=== PATIENT | male | born 1940 | race Caucasian/White ===

== ENCOUNTER → 2019-05-11 | Outpatient (CLI) | payer OTHER, MEDICARE ==
[~2019-05-11] MED LIST: AMLODIPINE BESY10 MG PO; CRANBERRY500 M3 PO; DOXYCYCLINE 10100 MG PO; ELIQUIS5 MG PO; LIPITOR80 MG PO; LOSARTAN POTAS100 MG PO; MIRALAX17 G1 PO; PROBIOTIC1 EAC1 PO; ZETIA10 MG PO
--- NOTE | 2019-05-13 17:17 | SLE ---
[facility] [place] [address] POLYSOMNOGRAPHY STUDY Name: LORRAINE DELGADO Room #: REG [facility]#: [id number] Admission: 05/11/19 Attend Phys: Serafin Brock MD Discharge: Date of : 44 Report #: [id number] THIS REPORT FOR: //name// CC: Serafin Morrison MD DATE OF SERVICE: 05/11/2019 SLEEP STUDY REPORT ATTENDING PHYSICIAN: Dr. Kyle Morrison. FINDINGS: The patient is a 79-year-old who weighs 255 pounds with a BMI of 32.7. The patient has history of severe sleep apnea, for which he has been on CPAP. A recent compliance data revealed adequate efficacy of the CPAP pressure. The patient was on auto CPAP. However, nocturnal oximetry study revealed low oxygen saturations. As a result, he was referred back to the Sleep Lab to assess the need for any increase in CPAP pressure versus supplemental oxygen. During the night study, the patient spent 477 minutes in bed and slept for 342 minutes with a sleep efficiency of 71%. Sleep latency was 23 minutes with a REM latency of 97.5 minutes. Sleep architecture showed increased stage 1 and stage 2 sleep, absent slow wave and normal REM sleep. EKG monitoring revealed an average heart rate of 49 beats per minute with a maximum of 75 beats per minute. Occasional PVCs observed. No sustained arrhythmias observed. PLMS were seen at an index of 24 per hour with only 1 per hour caused EEG arousals. The patient was started on CPAP at 5 cm of water and titrated up to 9 cm water. At the final pressure, the patient slept to 260 minutes including 64.9 minutes of REM sleep. The patient had supine sleep as well. The patient's AHI was reduced to 2.3 per hour and oxygen saturation remained above 90% with one spot desaturation of 86%. IMPRESSION: 1. Severe sleep apnea, diagnosed previously. 2. Nocturnal hypoxia, resolved with CPAP. 3. Moderate PLMS without any significant EEG arousals. RECOMMENDATIONS: 1. CPAP at 9 cm water completely eliminated the patient's sleep apnea and should be used on a nightly basis. The patient does not require supplemental [facility] [address] [place] [address] POLYSOMNOGRAPHY STUDY Name: SAMUELCHRISLORRAINE Andreea Room #: REG [facility].#: [id number] Admission: 05/11/19 Attend Phys: Serafin Brock MD Discharge: Date of : 44 Report #: [id number] oxygen. 2. Follow up in 4-6 weeks to assess compliance with CPAP and to document clinical improvement. 3. Weight loss is strongly advised. 4. Avoid TIP FIXER depressants. 5. Cautioned regarding driving until symptoms of sleep apnea resolve with the use of CPAP. 6. PLMS does not need to be treated unless the patient has symptoms of restless legs during the day. <ELECTRONICALLY SIGNED> By: Serafin Brock MD 05/13/19 1717 1818 1830 Serafin Brock MD /nt
== END ==
LOC: SLEEPLAB 13:05
DX: G47.33 Obstructive sleep apnea (adult) (pediatric) (principal); G47.30 Sleep apnea, unspecified; R09.02 Hypoxemia